=== PATIENT | male | born 1970 | race Two or more races ===

== ENCOUNTER 2025-02-27 05:49 | Day surgery (SDC) | payer OTHER ==
[2025-02-21 13:11] VITALS: BP 136/94
[~2025-02-27] VITALS: Ht 165.1 cm; Wt 66.7 kg
[~2025-02-27 05:49] MED LIST: SINGULAIR10 MG PO
[2025-02-27] MEDS ORDERED: CEFAZOLIN SODIUM 1,000 MG VIAL ONE (07:03)
[2025-02-27] MEDS ORDERED: SUGAMMADEX SODIUM 200 MG/2 ML VIAL IV ONE (12:39)
[2025-02-27] MEDS ORDERED: ONDANSETRON HCL 2 MG/ML VIAL ONE (13:44)
[2025-02-27] MEDS ORDERED: MEPERIDINE HCL 25 MG/ML AMPUL IV ONE (13:45)
[2025-02-27] MEDS ORDERED: MORPHINE SULFATE 4 MG/ML VIAL IV ONE (14:15)
== END 2025-02-27 16:30 | disposition home or self-care (01) ==
LOC: CIR.AMB 05:49
PROVIDERS: ATTEND Surgery
DX: K40.90 Unilateral inguinal hernia, without obstruction or gangrene, not specified as recurrent (principal); K40.31 Unilateral inguinal hernia, with obstruction, without gangrene, recurrent
CPT/HCPCS: 49650; 49651; C1781